=== PATIENT | male | born 1955 | race Caucasian/White ===

== ENCOUNTER 2018-12-24 21:20 | Inpatient (IN) | payer MEDICAID ==
[~2018-12-24] VITALS: Ht 170.2 cm; Wt 68.0 kg
[2018-12-24] MEDS ORDERED: IV NS 0.9% 1,000 ML BAG IV ONE (22:00)
[2018-12-24 22:07] LABS: BASOPHILS % (AUTO) 0.4 % (0.0-2.0); HEMATOCRIT 44 % (39-51); HEMOGLOBIN 12.5 g/dL (13.5-17.5); LYMPHOCYTES # (AUTO) 0.5 /CMM (0.8-4.8); LYMPHOCYTES % (AUTO) 3.9 % (20.0-44.0); MEAN CORPUSCULAR HGB CONC 28 g/dl (31.0-36.0); MEAN CORPUSCULAR VOLUME 115 fL (80-96); MONOCYTES # (AUTO) 1.1 /CMM (0.1-1.30); MONOCYTES % (AUTO) 8.6 % (2.0-12.0); NEUTROPHILS % (AUTO) 86.1 % (43.0-81.0); PLATELET COUNT (AUTO) 192 /CMM (150-450); RED BLOOD CELL COUNT(AUTO) 3.86 MIL/uL (4.5-6.0); WHITE BLOOD COUNT (AUTO) 12.8 K/uL (4.3-11.0)
--- NOTE | 2018-12-24 22:18 | NUR ---
DELFINA FROM STREET CALLED IN BY BYSTANDER. PT FOUND DOWN BESIDE A BANK PER EMS. PT IS LETHARGIC, VERBALLY RESPONSIVE AND ABLE TO FOLLW COMMANDS. NO RESP DISTRESS NOTED. BROUGHT IN FOR ALCOHOL INTOXICATION. PT NOTED WITH R EYES SWELLING, UNKNOWN ORIGIN. ACCUCHECK READING "HI' X 2. AND PA AT BEDSIDE FOR EVAL. NO NUERO DEFICIT NOTED. ORDERS RECEIVED NOTED AND CARRIED OUT. IV LINE OBTAINED ON L AC 20G. BLOOD DRAWN ANDGIVEN TO ELIGIBILITY COUNSELOR AT BEDSIDE.
--- NOTE | 2018-12-24 22:23 | NUR ---
DELFINA FROM STREET CALLED IN BY BYSTANDER. PT FOUND DOWN BESIDE A BANK PER EMS. PT IS LETHARGIC, VERBALLY RESPONSIVE AND ABLE TO FOLLW COMMANDS. NO RESP DISTRESS NOTED. BROUGHT IN FOR ALCOHOL INTOXICATION. PT NOTED WITH R EYES SWELLING, UNKNOWN ORIGIN. ACCUCHECK READING "HI' X 2. PT KEEPS ASKING FOR WATER, WATER PROVIDED W/O NOTING ANY S/S OF ASPIRATION. MD AND PA AT BEDSIDE FOR EVAL. NO NUERO DEFICIT NOTED. ORDERS RECEIVED NOTED AND CARRIED OUT. IV LINE OBTAINED ON L AC 20G. BLOOD DRAWN ANDGIVEN TO TRAVEL GUIDE AT BEDSIDE.
[2018-12-24 22:54] LABS: LYMPHOCYTES % (MANUAL) 3 % (16-48); MONOCYTES % (MANUAL) 4 % (0-11.0); NEUTROPHILS % (MANUAL) 93 (42-76)
[2018-12-24 22:57] LABS: ALANINE AMINOTRANSFERASE 124 U/L (12-78); ALBUMIN 3.2 g/dL (3.4-5.0); ALKALINE PHOSPHATASE 278 U/L (46-116); ASPARTATE AMINOTRANSFERASE 85 U/L (15-37); BILIRUBIN,DIRECT 1.3 mg/dL (0.0-0.2); BILIRUBIN,TOTAL 1.7 mg/dL (0.2-1.0); CALCIUM, SERUM 8.3 mg/dL (8.5-10.1); CREATININE 3.6 mg/dL (0.6-1.3); TOTAL PROTEIN, SERUM 7.2 g/dL (6.4-8.2); UREA NITROGEN, BLOOD 63 mg/dL (7-18)
--- NOTE | 2018-12-24 23:00 | NUR ---
SHAY DAHL MADE AWARE OF BP 84/57. IL NS RUNNING PER ORDER. NO NEW ORDERS FOR NOW
[2018-12-24 23:02] LABS: CHLORIDE 71 mmol/L (98-107); POTASSIUM 7.4 mmol/L (3.5-5.1); SODIUM SERUM 108 mmol/L (136-145)
[2018-12-24 23:03] LABS: CARBON DIOXIDE 6 mmol/L (21-32); GLUCOSE 1377 mg/dL (74-106)
[2018-12-24] MEDS ORDERED: IV NS 0.9% 1,000 ML IV PRN (23:04)
[2018-12-24 23:05] LABS: ACETAMINOPHEN < 2 ug/ml (10-30)
[2018-12-24 23:13] LABS: ALCOHOL, BLOOD < 3 mg/dL (0-0)
[2018-12-24] MEDS ORDERED: INSULIN REGULAR, HUMAN 100 UNIT/ML 10 ML VIAL ONE (23:20)
--- NOTE | 2018-12-24 23:21 | NUR ---
DR. VAZQUEZ, NEPHROLOGY PAGED.
[2018-12-24 23:26] LABS: MAGNESIUM 3.6 mg/dL (1.8-2.4)
[2018-12-24 23:27] LABS: PHOSPHORUS 11.6 mg/dL (2.5-4.9)
[2018-12-24] MEDS: INSULIN REGULAR, HUMAN 100 UNIT in IV NS 0.9% 99 ML IV PRN ×2 (23:30)
--- NOTE | 2018-12-24 23:39 | NUR ---
DR. VAZQUEZ ON PHONE W/ DR. HYATT
[2018-12-24] MEDS ORDERED: LIDOCAINE 2% JEL UROJET 10 ML MM ONE (23:47)
[2018-12-25] VITALS (25 sets, daily range): BP systolic 95–125; BP diastolic 42–73
[2018-12-25] MEDS ORDERED: LIDOCAINE 2% JEL UROJET 10 ML MM ONE
[2018-12-25] MEDS ORDERED: Z GUARD REMEDY 2 OZ OINT TP PRN
[2018-12-25] MEDS ORDERED: ACETAMINOPHEN 325 MG TABLET PO PRN
[2018-12-25] MEDS ORDERED: ONDANSETRON HCL/PF 4 MG/2 ML VIAL IVP PRN
[2018-12-25] MEDS ORDERED: IV NS 0.9% 1,000 ML BAG IV ONE
[2018-12-25] MEDS ORDERED: ENOXAPARIN SODIUM 30 MG/0.3 ML DISP.SYRIN SQ ONE (01:00)
--- NOTE | 2018-12-25 01:00 | NUR ---
REPORT GIVEN TO SOFIA BAUTISTA FOR KARMEN.
[2018-12-25 01:03] LABS: APPEARANCE,URINE Clear (CLEAR); BILIRUBIN,URINE Negative (NEGATIVE); BLOOD, URINE Trace-lysed Ery/uL (NEGATIVE); COLOR,URINE Yellow (YELLOW); KETONES,URINE Negative (NEGATIVE); LEUKOCYTE ESTERASE ,URINE Negative (NEGATIVE); NITRITE, URINE Negative (NEGATIVE); PROTEIN,URINE 100 mg/dl (NEGATIVE); UGLUCOSE 500 MG/DL mg/dL (NEGATIVE); UROBILINOGEN,URINE 0.2 EU/dL (0.2)
[2018-12-25] MEDS ORDERED: PIPERACILLIN /TAZOBACTAM 2.25 G VIAL IV ONE ×2 (01:03→06:35)
--- NOTE | 2018-12-25 01:10 | NUR ---
ICU/RN-ADMITTED THIS 63YO MALE FROM ER PER ACLS PROTOCOL. ROUTINE ICU ADMISSION CARE INITIATED. NURSING FOCUS:ALTERED NUTRITION R/T DIAGNOSIS OF DKA. ON INSULIN DRIP AT 15 UNITS/HR PER PROTOCOL.PT. IS LETHARGIC, AROUSABLE, APPROPRIATE, ORIENTED TO SELF, PLACE .DENIES PAIN AT THIS TIME. NO S/S OF DISTRESS. PT. IS A FULL CODE.
[2018-12-25] MEDS: PIPERACILLIN /TAZOBACTAM 2.25 G in IV D5W 50 ML IV SCH ×5 (01:12→23:08)
[2018-12-25] MEDS: IV NS 0.9% 1,000 ML IV PRN ×2 (01:13→10:34)
--- NOTE | 2018-12-25 01:17 | NUR ---
PT TRANSPORTED TO UNIT ON GURNEY WITH EMT AND RN AT BESIDE W/ ACLS PROTOCOL. NAD NOTED DURING TRANSPORT.
--- NOTE | 2018-12-25 01:20 | NUR ---
ICU/RN-HYPOTHERMIC. TEMPT.92.7/F, KEPT WARM. WARMING BLANKET APPLIED. WILL CONTINUE TO MONITOR PER PROTOCOL.
[2018-12-25] MEDS: ASPIRIN EC 81 MG TABLET.DR PO SCH ×2 (01:26→09:00)
[2018-12-25 01:51] LABS: CALCIUM, SERUM 7.2 mg/dL (8.5-10.1); CREATININE 3.9 mg/dL (0.6-1.3); MAGNESIUM 3.3 mg/dL (1.8-2.4); POTASSIUM 5.7 mmol/L (3.5-5.1)
[2018-12-25] MEDS ORDERED: VANCOMYCIN 500 MG in IV D5W 100ml IV ONE (02:00)
--- NOTE | 2018-12-25 02:00 | NUR ---
ICU/RN-PT. AGITATED, TRYING TO PULL OUT IV LINES IN SPITE OF VERBAL REMINDER. COURT. SOFT WRIST RESTRAINTS APPLIED PER PROTOCOL. WILL CONTINUE TO MONITOR CLOSELY.
[2018-12-25] MEDS: BLOOD SUGAR DIAGNOSTIC 1 EACH STRIP IN SCH ×18 (02:10→19:19)
[2018-12-25] MEDS ORDERED: VANCOMYCIN 500 MG VIAL ONE (02:12)
[2018-12-25 02:16] LABS: PHOSPHORUS 10.6 mg/dL (2.5-4.9)
[2018-12-25] MEDS: INSULIN REGULAR, HUMAN 100 UNIT in IV NS 0.9% 99 ML IV PRN ×16 (02:28→11:26)
[2018-12-25 03:00] LABS: BACTERIA,URINE Few /HPF (None Seen); SQUAMOUS EPITHELIAL CELL,UR Rare /HPF (None Seen)
[2018-12-25 04:24] LABS: CALCIUM, SERUM 7.4 mg/dL (8.5-10.1); MAGNESIUM 3.3 mg/dL (1.8-2.4); POTASSIUM 4.9 mmol/L (3.5-5.1)
[2018-12-25 04:26] LABS: PHOSPHORUS 9.2 mg/dL (2.5-4.9)
[2018-12-25] MEDS ORDERED: INSULIN REGULAR, HUMAN 100 UNIT/ML 3 ML VIAL ONE (05:18)
[2018-12-25 05:22] LABS: BASOPHILS % (AUTO) 0.2 % (0.0-2.0); EOSINOPHILS % (AUTO) 1.1 % (0.0-6.0); HEMATOCRIT 32 % (39-51); HEMOGLOBIN 10.2 g/dL (13.5-17.5); LYMPHOCYTES # (AUTO) 0.7 /CMM (0.8-4.8); MEAN CORPUSCULAR HGB CONC 32 g/dl (31.0-36.0); MEAN CORPUSCULAR VOLUME 100 fL (80-96); MONOCYTES % (AUTO) 7.4 % (2.0-12.0); NEUTROPHILS # (AUTO) 11.5 /CMM (1.8-8.9); NEUTROPHILS % (AUTO) 86.3 % (43.0-81.0); PLATELET COUNT (AUTO) 144 /CMM (150-450); RED BLOOD CELL COUNT(AUTO) 3.22 MIL/uL (4.5-6.0); WHITE BLOOD COUNT (AUTO) 13.3 K/uL (4.3-11.0)
--- NOTE | 2018-12-25 05:22 | NUR ---
ICU/RN- 0300 LABS RELAYED TO Sunitha SOMERS DNP W/ PHONE ORDERS BS X 2.2 DIVIDED BY 100=UNITS/HR PER PROTOCOL.
[2018-12-25 05:33] LABS: CALCIUM, SERUM 7.4 mg/dL (8.5-10.1); CREATININE 4.1 mg/dL (0.6-1.3)
[2018-12-25 05:36] LABS: ALBUMIN 2.8 g/dL (3.4-5.0); BILIRUBIN,TOTAL 1.1 mg/dL (0.2-1.0); MAGNESIUM 3.1 mg/dL (1.8-2.4); PHOSPHORUS 6.6 mg/dL (2.5-4.9); TOTAL PROTEIN, SERUM 6.4 g/dL (6.4-8.2)
[2018-12-25 05:43] LABS: THYROID STIMULATING HORMONE 1.595 uIU/mL (0.358-3.74)
--- NOTE | 2018-12-25 06:30 | NUR ---
ICU/RN-U/O 20 ML SINCE ADMISSION. RELAYED TO Sunitha SOMERS DNP W/ PHONE ORDER.
[2018-12-25] MEDS ORDERED: FUROSEMIDE 20 MG/2 ML VIAL IV ONE (07:30)
[2018-12-25 07:55] LABS: CALCIUM, SERUM 7.6 mg/dL (8.5-10.1); CREATININE 4.1 mg/dL (0.6-1.3); MAGNESIUM 2.9 mg/dL (1.8-2.4); PHOSPHORUS 5.7 mg/dL (2.5-4.9); POTASSIUM 3.9 mmol/L (3.5-5.1)
[2018-12-25] MEDS ORDERED: FEE PK DOSING 1 MIN EA MC ONE (08:22)
[2018-12-25 09:14] LABS: CALCIUM, SERUM 7.6 mg/dL (8.5-10.1); MAGNESIUM 2.9 mg/dL (1.8-2.4); PHOSPHORUS 5.1 mg/dL (2.5-4.9); POTASSIUM 3.6 mmol/L (3.5-5.1)
[2018-12-25 11:23] LABS: CALCIUM, SERUM 7.4 mg/dL (8.5-10.1); CREATININE 3.6 mg/dL (0.6-1.3)
[2018-12-25 11:27] LABS: MAGNESIUM 2.8 mg/dL (1.8-2.4)
[2018-12-25 11:39] LABS: ABG BASE EXCESS -5.6 mmol/L; ABG OXYGEN SATURATION 91.9 % (92.0-98.5); ABG PCO2 32.2 mmHg (35.0-45.0); ABG PO2 64.7 mmHg (75.0-100.0); AaDO2 46.5 mmHg; COHb 0.9 % (0.5-1.5); MetHb 0.7 % (0.0-1.5); O2Hb 90.4 % (94.0-97.0); SITE, ABG Right Radial; VENT MODE, BG ROOM AIR
[2018-12-25] MEDS ORDERED: IV D5/0.45 NACL 1,000 ML IV PRN (12:30)
[2018-12-25 13:44] LABS: CALCIUM, SERUM 7.6 mg/dL (8.5-10.1); CREATININE 3.3 mg/dL (0.6-1.3); POTASSIUM 3.9 mmol/L (3.5-5.1)
[2018-12-25] MEDS ORDERED: DEXTROSE 50%-WATER 50 ML DISP.SYRIN ONE (15:30)
[2018-12-25] MEDS ORDERED: DEXTROSE 50%-WATER 50 ML DISP.SYRIN IVP ONE (15:30)
[2018-12-25 15:38] LABS: CALCIUM, SERUM 7.9 mg/dL (8.5-10.1)
[2018-12-25 15:41] LABS: POTASSIUM 2.8 mmol/L (3.5-5.1)
[2018-12-25] MEDS ORDERED: DEXTROSE 50%-WATER 50 ML DISP.SYRIN IVP PRN (16:00)
[2018-12-25] MEDS: POTASSIUM CL. PREMIX PERIPHER. 50 ML IV SCH ×4 (16:08→19:07)
[2018-12-25 17:26] LABS: CALCIUM, SERUM 7.8 mg/dL (8.5-10.1); CREATININE 2.9 mg/dL (0.6-1.3); POTASSIUM 3.3 mmol/L (3.5-5.1)
--- NOTE | 2018-12-25 17:50 | NUR ---
Patient was BIB EMS found on the streets altered and reported homeless. Met with patient,stated his correct last name is Walter with SSN# [id number]. Registration updated patient new info and showed has straight Medical insurance. Patient still lethargic during interview, states he resides in a recovery house but he does not remember the contact info and address. States he is usually ambulatory and independent with adl's. Has two brothers Shon Watson and Cali Watson but cannot remember contact numbers. Will reassess dc planning needs once more awake and stable. Addendum: 12/25/18 at 1752 by ALVARO CHAN RN Amended: Links added.
[2018-12-25] MEDS ORDERED: DEXTROSE 50%-WATER 50 ML DISP.SYRIN IV PRN (18:00)
[2018-12-25 18:58] LABS: MAGNESIUM 2.8 mg/dL (1.8-2.4); PHOSPHORUS 3.8 mg/dL (2.5-4.9)
--- NOTE | 2018-12-25 19:30 | NUR ---
GIS GEOGRAPHER NOTE RECEIVED PT A/O X2. NOTED ANXIOUS AND RESTLESS. ON ROOM AND AND BREATHING UNLABORED. ON INSULIN DRIP. ENDORSED TO TURN OFF INSULIN DRIP AT 1999 PER MD ORDER. TELE- SR. IV CLEAN AND DRY WITH FLUIDS INFUSING. ON BILATERAL SOFT WRIST RESTRAINTS WITH PALPABLE RADIAL PULSES AND NO DISCOLORATION NOTED. BED LOCKED IN LOWEST POSITION AND BED ALARM ENABLED. HEBERT CATHETER IN PLACE AND DRAINING BY GRAVITY. WILL CONTINUE TO MONITOR.
[2018-12-25 19:40] LABS: CALCIUM, SERUM 7.7 mg/dL (8.5-10.1); CREATININE 2.6 mg/dL (0.6-1.3); POTASSIUM 4.1 mmol/L (3.5-5.1)
[2018-12-25] MEDS ORDERED: BLOOD SUGAR DIAGNOSTIC 1 EACH STRIP IN SCH ×2 (20:00→22:00)
[2018-12-25 21:33] LABS: CALCIUM, SERUM 7.5 mg/dL (8.5-10.1); CREATININE 2.4 mg/dL (0.6-1.3); POTASSIUM 4.3 mmol/L (3.5-5.1)
[2018-12-25] MEDS: ATORVASTATIN 10 MG TABLET PO SCH (22:05)
[2018-12-25] MEDS: INSULIN REGULAR, HUMAN 100 UNIT/ML 3 ML VIAL SQ PRN (22:09)
[2018-12-26] VITALS (16 sets, daily range): BP systolic 96–123; BP diastolic 52–78
[2018-12-26] MEDS: BLOOD SUGAR DIAGNOSTIC 1 EACH STRIP IN SCH ×7 (00:31→21:38)
[2018-12-26] MEDS: INSULIN REGULAR, HUMAN 100 UNIT/ML 3 ML VIAL SQ PRN ×7 (00:32→21:50)
--- NOTE | 2018-12-26 02:37 | NUR ---
GRAIN GRADER NOTE SPOKE WITH FOREIGN EXCHANGE TRADER DR. SOMERS WITH ORDERS TO D/C D5 1/2NS AND START NS @75. ALSO CHANGE ACCU CHECKS Q2H TO Q4H. ORDERS NOTED AND CARRIED OUT.
[2018-12-26] MEDS: IV NS 0.9% 1,000 ML IV PRN ×2 (02:42→20:11)
[2018-12-26 05:05] LABS: CALCIUM, SERUM 7.4 mg/dL (8.5-10.1); CREATININE 1.9 mg/dL (0.6-1.3); POTASSIUM 3.4 mmol/L (3.5-5.1)
[2018-12-26] MEDS: PIPERACILLIN /TAZOBACTAM 2.25 G in IV D5W 50 ML IV SCH ×4 (05:28→23:26)
--- NOTE | 2018-12-26 07:00 | NUR ---
DAIRY FARM OPERATOR NOTE PT REMAINED STABLE DURING SHIFT. NO ACUTE DISTRESS NOTED. BLOOD SUGAR WNL. ADEQUATE URINE OUTPUT NOTED. AFEBRILE. ALL NEEDS ATTENDED TO PROMPTLY. KEPT CLEAN AND DRY. BILATERAL RESTRAINTS REMAIN ON WITH NO INJURIES NOTED. WILL ENDORSE TO NEXT SHIFT FOR CONTINUITY OF CARE.
--- NOTE | 2018-12-26 08:15 | NUR ---
CAREER COACH OPENING NOTES RECEIVED PT REPORT FROM SOFIA GAN PM NURSE.PT IS LYING ON BED,SLEEPY.WITH B/L SOFT WRIST RESTRAINTS.SKIN IS INTACT.ON TELE HR IS 65 WITH NSR.ON ROOM AIR,TOLERATING WELL.NO SOB AND ACUTE DISTRESS NOTED.ON HEBERT CATH WITH CLEAR YELLOW COLOR URINE.ON NPO.IV LINE IS ON RIGHT HAND G20 WITH IV NS 0.9% WITH 75 ML/HR IS RUNNING AND ON LEFT AC G20 SL.SITE IS CLEAN,DRY AND INTACT.NO INFILTRATION NOTED.SAFETY IS MAINTAINED AT ALL TIMES,CALL LIGHT IS WITHIN REACH.BED IS IN LOW POSITION AND LOCKED.WILL CONTINUE TO MONITOR THE PT CLOSELY.
[2018-12-26] MEDS: ASPIRIN EC 81 MG TABLET.DR PO SCH (09:07)
[2018-12-26] MEDS: ENOXAPARIN SODIUM 30 MG/0.3 ML DISP.SYRIN SQ SCH (09:11)
[2018-12-26] MEDS ORDERED: POTASSIUM CL. PREMIX PERIPHER. 50 ML IV SCH (11:00)
--- NOTE | 2018-12-26 13:00 | NUR ---
MS RN NOTES PT TRANSFERRED TO [facility] TO ROOM 117-1 WITH ALL THE MEDICATIONS.
[2018-12-26] MEDS ORDERED: VANCOMYCIN 0.75 GM in IV D5W 250 ML IV SCH (14:00)
--- NOTE | 2018-12-26 14:56 | NUR ---
Social service consult requested by Dr. Magallanes for homelessness. Pt. is a 63 year old male who was admitted to [facility] for Hypersmolar and Diabetes Mellitus. SW met with the pt. bedside. Pt. is alert and oriented x 3. Pt. appears disheveled. Pt. is cooperative with SW during the assessment. Pt. has two point restraints at this time due to pt. pulling out IV and being restless per SOFIA Bethea. Pt. states he lives at [facility] and care on [address] in [place]. Pt. is unable to provide the exact address. Pt. pays $900 a month which includes 3 meals. Pt. receives $930/ month in SSI. Pt. states he moved into the Board and care a few weeks ago. Pt. would like to discharge back to his residence once medically cleared. Pt. will require TAP card for transportation. Pt. has a psychiatric diagnosis of Schizoaffective Disorder. Pt. denies any suicidal and homicidal ideations and visual/auditory hallucinations at this time. Pt. denies alcohol and drug use. No other social service needs are requested at this time. SW is available, if needed.
[2018-12-26] MEDS: LACTOBACILLUS RHAMNOSUS GG 1 EACH CAP.SPRINK PO SCH (16:57)
--- NOTE | 2018-12-26 18:59 | NUR ---
MS RN CLOSING NOTES PT IS LYING ON BED WITH B/L SOFT WRIST RESTRAINTS.RESPIRATION IS EVEN AND NONLABORED.NO SIGNIFICANT CHANGES NOTED IN THE SHIFT.WILL ENDORSE TO JEWEL BEARING POLISHER RN FOR KARMEN.
--- NOTE | 2018-12-26 19:20 | NUR ---
RN NOTES: RECEIVED AWAKE ON BED, A/OX 1-2, COMMUNICATES WELL,PLEASANT PERSONALITY, ON BILATERAL SOFT RESTRAINT, CIRCULATION MONITORED AT FREQUENT INTERVALS, ON NS AT 75 ML/HR ,LAC G#20 PATENT, ANOTHER IV LINE: RH G#20,INTACT AND PATENT. HEBERT CATH INTACT DRAINING INTO DARK YELLOWISH COLORED URINE, HE IS LYING COMFORTABLY IN BED,ON FLAT POSITION, OREINTED TO UNIT AND STAFF, BED LOW AND LOCKED, CALL LIGHT WITHIN EASY REACH, FALL,SAFETY AND ASPIRATION PRECAUTION OBSERVED.
--- NOTE | 2018-12-26 20:11 | NUR ---
RN NOTES: IVF CONSUMED , REPLACE WITH NEW BAG OF NS AT 75 ML/HR, PATIENT IS ASLEEP, KEPT ON CLOSE WATCH, BED LOW AND LOCKED, CALL LIGHT WITHIN EASY REACH.
[2018-12-26] MEDS: ATORVASTATIN 10 MG TABLET PO SCH (21:38)
--- NOTE | 2018-12-26 21:39 | NUR ---
RN NOTES: BLOOD SUGAR CHECKED-111, NO INSULIN PER SCALE CONTINUE TO MONITOR FOR SIGN OF HYPER/HYPOGLYCEMIA, REQUESTED FOR PAIN MEDICATION, HE HAS MILD PAIN 3/10, GENERALIZED, NON PHARMACOLOGIC INTERVENTION RENDERED, DIM LITE, AND WARM BLANKET PROVIDED.
[2018-12-27] VITALS (7 sets, daily range): BP systolic 111–131; BP diastolic 60–85
[2018-12-27] MEDS: BLOOD SUGAR DIAGNOSTIC 1 EACH STRIP IN SCH ×6 (02:19→22:00)
[2018-12-27] MEDS: INSULIN REGULAR, HUMAN 100 UNIT/ML 3 ML VIAL SQ PRN ×5 (02:22→23:50)
--- NOTE | 2018-12-27 02:22 | NUR ---
RN NOTES: BLOOD SUGAR CHECKED-187, INSULIN GIVEN PER SCALE, PATIENT IS ASLEEP, NO PAIN OR DISCOMFORT,KEPT ON CLOSE WATCH.CALL LIGHT WITHIN EASY REACH, CIRCULATION CHECKED AT FREQUENT INTERVALS ON THE BILATERAL SOFT WRIST RESTRAINT.
[2018-12-27] MEDS: PIPERACILLIN /TAZOBACTAM 2.25 G in IV D5W 50 ML IV SCH ×3 (04:26→17:44)
--- NOTE | 2018-12-27 06:04 | NUR ---
RN NOTES: ASLEEP IN BETWEEN, MORNING CARE DONE, BLOOD SUGAR CHECK-233, INSULIN GIVEN PER SCALE, CALLS AND NEEDS ATTENDED.
[2018-12-27 06:42] LABS: BASOPHILS % (AUTO) 0.3 % (0.0-2.0); HEMATOCRIT 32 % (39-51); HEMOGLOBIN 10.7 g/dL (13.5-17.5); LYMPHOCYTES # (AUTO) 0.6 /CMM (0.8-4.8); LYMPHOCYTES % (AUTO) 11.2 % (20.0-44.0); MEAN CORPUSCULAR HGB CONC 33 g/dl (31.0-36.0); MEAN CORPUSCULAR VOLUME 95 fL (80-96); MONOCYTES # (AUTO) 0.5 /CMM (0.1-1.30); MONOCYTES % (AUTO) 9.3 % (2.0-12.0); NEUTROPHILS # (AUTO) 4.2 /CMM (1.8-8.9); NEUTROPHILS % (AUTO) 78.2 % (43.0-81.0); PLATELET COUNT (AUTO) 126 /CMM (150-450); RED BLOOD CELL COUNT(AUTO) 3.39 MIL/uL (4.5-6.0); WHITE BLOOD COUNT (AUTO) 5.4 K/uL (4.3-11.0)
[2018-12-27 06:47] LABS: CALCIUM, SERUM 7.2 mg/dL (8.5-10.1); CREATININE 0.9 mg/dL (0.6-1.3)
--- NOTE | 2018-12-27 07:10 | NUR ---
RN OPENING NOTES RECEIVED REPORT AT BEDSIDE. PT ASLEEP BUT AROUSABLE TO TACTILE STIMULI. BILATERAL SOFT RESTRAIN ON. PT HAS HEBERT CATHETER DRAINING URINE TO GRAVITY, CLEAR AND YELLOW URINE. SAFETY PRECAUTION IN PLACE. BED LOCKED AND LOW, SIDE RAILS UP X2, BED ALARM ON. CALL LIGHT IN REACH. WILL CON TO MONITOR.
--- NOTE | 2018-12-27 07:10 | NUR ---
RN NOTES: LATEST WEIGHT-150, CALLS AND NEEDS ATTENDED, NO SIGN OF RESPIRATORY DISTRESS,KEPT ON CLOSE MONITORING, CALL LIGHT WITHIN EASY REACH, BILATERAL SOFT RESTRAINT CHECKED AND ASSESSED CIRCULATION,ENDORSED FOR CONTINUITY OF CARE.
--- NOTE | 2018-12-27 08:38 | NUR ---
RN MS NOTE PT IS SO CLAM AND COOPERATIVE. RETRAIN REMOVED. WILL CONTINUE TO MONITOR.
[2018-12-27] MEDS: ENOXAPARIN SODIUM 30 MG/0.3 ML DISP.SYRIN SQ SCH (09:00)
[2018-12-27] MEDS: ASPIRIN EC 81 MG TABLET.DR PO SCH (09:47)
[2018-12-27] MEDS: LACTOBACILLUS RHAMNOSUS GG 1 EACH CAP.SPRINK PO SCH ×2 (09:47→17:44)
--- NOTE | 2018-12-27 10:41 | NUR ---
MS RN NOTE PATIENT'S PLATELETS 126 (TRENDING DOWN). DR. WATSON MADE AWARE AND HE ORDERED TO D/C LOVENOX AND PUT SCD. ORDER CARRIED OUT.
--- NOTE | 2018-12-27 10:52 | NUR ---
MS RN NOTE DR. WATSON AT BEDSIDE PT REQUESTED TO REMOVE HEBERT CATHETER. PER DR. WATSON IT IS OK TO REMOVE THE HEBERT IF PATIENT PASS PT EVALVE. WAITING FOR PT EVAVE.
--- NOTE | 2018-12-27 13:38 | NUR ---
MS RN NOTE PHYSICAL THERAPIST (XIAO) AT BEDSIDE BUT DID NOT DO PT EVALVE B/C OF PATIENT HAVING HIGH TROPONIN 0.312. HE SAID HE CAN DO THE PT EVALVE AFTER BEING CLEARED BY THE MD. CHARGE NURSE MADE AWARE. DR. WATSON WAS PAGED. WILL FOLLOW UP.
--- NOTE | 2018-12-27 14:17 | NUR ---
MS RN NOTE PER DR. WATSON PATIENT IS OK FOR PT EVALUATION.
--- NOTE | 2018-12-27 14:30 | NUR ---
MS RN NOTE PT EVALVE DONE. PT COULD WALK IN THE HALLWAY WITHOUT ASSISTANCE. HEBERT CATHETER REMOVED.
[2018-12-27] MEDS: VANCOMYCIN 0.75 GM in IV D5W 250 ML IV SCH (14:34)
[2018-12-27] MEDS: IV NS 0.9% 1,000 ML IV PRN (14:44)
--- NOTE | 2018-12-27 20:08 | NUR ---
MS RN CLOSING NOTES PT IS LYING ON BED COMFORTABLY. RESPIRATION IS EVEN AND NONLABORED.NO SIGNIFICANT CHANGES NOTED IN THE SHIFT. ENDORSED TO BUTTON CLAMPER RN FOR KARMEN.
[2018-12-27] MEDS: ATORVASTATIN 10 MG TABLET PO SCH (22:23)
[2018-12-28] MEDS: PIPERACILLIN /TAZOBACTAM 2.25 G in IV D5W 50 ML IV SCH ×3 (00:35→11:14)
[2018-12-28] MEDS: VANCOMYCIN 0.75 GM in IV D5W 250 ML IV SCH (02:00)
[2018-12-28] MEDS: BLOOD SUGAR DIAGNOSTIC 1 EACH STRIP IN SCH ×4 (03:26→14:11)
[2018-12-28] MEDS: INSULIN REGULAR, HUMAN 100 UNIT/ML 3 ML VIAL SQ PRN ×4 (03:32→14:09)
[2018-12-28 05:38] VITALS: BP 124/71
[2018-12-28 06:40] LABS: CALCIUM, SERUM 7.9 mg/dL (8.5-10.1); CREATININE 0.7 mg/dL (0.6-1.3); POTASSIUM 3.6 mmol/L (3.5-5.1)
[2018-12-28 06:42] LABS: BASOPHILS % (AUTO) 0.4 % (0.0-2.0); EOSINOPHILS % (AUTO) 0.9 % (0.0-6.0); HEMATOCRIT 32 % (39-51); LYMPHOCYTES # (AUTO) 0.6 /CMM (0.8-4.8); LYMPHOCYTES % (AUTO) 11.6 % (20.0-44.0); MEAN CORPUSCULAR HGB CONC 34 g/dl (31.0-36.0); MEAN CORPUSCULAR VOLUME 95 fL (80-96); MONOCYTES # (AUTO) 0.5 /CMM (0.1-1.30); MONOCYTES % (AUTO) 9.9 % (2.0-12.0); NEUTROPHILS # (AUTO) 4.2 /CMM (1.8-8.9); NEUTROPHILS % (AUTO) 77.2 % (43.0-81.0); PLATELET COUNT (AUTO) 112 /CMM (150-450); RED BLOOD CELL COUNT(AUTO) 3.43 MIL/uL (4.5-6.0); WHITE BLOOD COUNT (AUTO) 5.5 K/uL (4.3-11.0)
[2018-12-28 07:00] VITALS: BP 110/52
[2018-12-28 08:00] VITALS: BP 110/52
--- NOTE | 2018-12-28 08:00 | NUR ---
RN OPENING NOTES RECEIVED . PT ASLEEP BUT AROUSABLE TO TACTILE STIMULI. SAFETY PRECAUTION IN PLACE. BED LOCKED AND LOW, SIDE RAILS UP X2, BED ALARM ON. CALL LIGHT IN REACH. WILL CON TO MONITOR. RT HAND AND LT AC HL INTACT ON IVF ORDERED HAVING BREAKFAST ABLE TO EAT SELF , PLAN OF CARE DISCUSSED WITH PATENTM NO SOB NOTED NO C\O ABDOMINAL DISCOMFORT AT THIS TIME , WILL MONITOR
[2018-12-28] MEDS: LACTOBACILLUS RHAMNOSUS GG 1 EACH CAP.SPRINK PO SCH (08:36)
[2018-12-28] MEDS: ASPIRIN EC 81 MG TABLET.DR PO SCH (08:36)
[2018-12-28] MEDS: IV NS 0.9% 1,000 ML IV PRN (10:06)
--- NOTE | 2018-12-28 10:31 | NUR ---
MS RN NOTE PER DR WATSON PATIENT NEED TO HAVE PLACE TO DISCHARGE,PATIENT IS HOMELESS SPOKE WITH REAGAN RODRIGUEZ STILL LOOKING FOR PLACE , NO DISCHARGE ORDER YET , WILL F\U
--- NOTE | 2018-12-28 12:09 | NUR ---
MS RN NOTE SPOKE WITH YANG STOCK PARTS INSPECTOR STATED THAT WILL COME SOON TO SEE PATIENT TO BRING RECOURSES INFORMATION FOR [facility], WILL F\U
[2018-12-28] MEDS ORDERED: ATOR10TA PO (13:22)
[2018-12-28] MEDS ORDERED: INSU100V7 SQ (13:22)
[2018-12-28] MEDS ORDERED: ASPI-1152 PO (13:22)
--- NOTE | 2018-12-28 13:58 | NUR ---
ACUTE CARE REGISTERED NURSE NOTE INSPECTOR SHELLS AT BEDSIDE ,LIST OF SENIOR LIVING GIVEN , WAVER SIGHTED BY PATIENT, ALSO PER DR WALTER JENSEN TO DISCHARGE TO SENIOR LIVING , UNABLE TO SUBMIT PX TO PHARMACY BY DR WATSON AT THIS TIME, PHARMACY IS CLOSED , LEFT A MESSAGE TO PHARMACY ABOUT NEW PX AND PHONE NUMBER OF HOSPITAL , PER DR WALTER JENSEN TO REFILL NEW PX TOMORROW SATURDAY, WILL DISCUSSED WITH PATIENT
--- NOTE | 2018-12-28 14:29 | NUR ---
MS RN NOTE PATIENT ALERT , ORIENTED, UNDERSTANDS THAT NEED TO GO TO GROUP HOME FROM LIST PROVIDED ALSO WAIVER SIGNED BY PATIENT ,
--- NOTE | 2018-12-28 14:29 | NUR ---
SIGN ARTIST NOTE DISCHARGE INSTRUCTION GIVEN, UNDERSTOOD, RETURN DEMONSTRATION DONE , HL ON RT HAND AND LT AC REMOVED. PRESSURE DRESSING APPLIED, NO BLEEDING NOTED AT THIS TIME . PX GIVEN TO PATIENT AND INSTRUCTED HOW TO TAKE NEW PX AND POSSIBLE SIDE EFFECTS, DIABETIC TEACHING PROVIDED , INSTRUCTED THAT DUE TO PHARMACY IS CLOSED TO F\U TOMORROW MORNING WITH PHARMACY AND INSTRUCTED TO F\U WITH PRIMARY CARE DOCTOR AND RETURN FOR WORSENING SYMPTOMS ,AGAIN INSTRUCTED ABOUT CORRECTION PLACEMENT , BUS TICKET GIVEN TO PATIENT , PORT CRANE OPERATOR EMPLANED TO CHOOSE CORRECTION FROM LIST , TAKEN TO LOBBY ON W\C WITH RETAIL PHARMACIST WITH STABLE CONDIITOIN NO S\SOF HYPERGLYCEMIC REACTION NOTED, HAVE LUNCH WELL
--- NOTE | 2018-12-28 14:55 | NUR ---
MS RN NOTE FOAMING MACHINE OPERATOR WITH PATIENT, ASSISTED TO FIND BUS STOP ,
== END 2018-12-28 14:30 | disposition home or self-care (01) | DRG 469 ==
LOC: ER 21:23 → ICU 23:24 → MEDSG1 12-26 12:39
PROVIDERS: ADMIT Nurse Practitioner Acute Care; ATTEND Family Medicine
DX: N17.0 Acute kidney failure with tubular necrosis (principal); I21.4 Non-ST elevation (NSTEMI) myocardial infarction; E11.10 Type 2 diabetes mellitus with ketoacidosis without coma; G93.41 Metabolic encephalopathy; D72.829 Elevated white blood cell count, unspecified; Z59.0 Homelessness; D75.89 Other specified diseases of blood and blood-forming organs; E83.39 Other disorders of phosphorus metabolism; E86.0 Dehydration; E87.1 Hypo-osmolality and hyponatremia; E87.5 Hyperkalemia; R74.0 Nonspecific elevation of levels of transaminase and lactic acid dehydrogenase [LDH]; E87.2 Acidosis; E80.6 Other disorders of bilirubin metabolism; Z79.4 Long term (current) use of insulin; N18.9 Chronic kidney disease, unspecified; E11.22 Type 2 diabetes mellitus with diabetic chronic kidney disease
CPT/HCPCS: 36415; 36600; 70450-TC; 70486-TC; 71045-TC; 72125-TC; 76770-TC; 80048-TC; 80053-TC; 80061-TC; 80076-TC; 80202-TC; 80305; 81000-TC; 82947-TC; 82962-TC; 83540-TC; 83735-TC; 84100-TC; 84443-TC; 84484-TC; 85025-TC; 87081-TC; 87086-TC; 93307-TC; 97116-TC; 97530-TC; G0378; G0480; J1650; J1815; J2543; J3370; J3480; J3490; J7030; J7040; J7060